=== PATIENT | female | born 1990 | race Caucasian/White ===

== ENCOUNTER 2016-06-02 15:17 | Emergency (ER) ==
[2016-06-02 17:37] LABS: MANUAL DIFF NEEDED? NO
[2016-06-02 18:02] LABS: AGAP 10; ALKALINE PHOSPHATASE 38 U/L (32-104); AMYLASE 69 U/L (20-200); BUN 9 mg/dL (8-22); CALCIUM 8.9 mg/dL (8.8-10.2); CHLORIDE 102 mmol/L (98-107); COSMO 268; GOT 15 U/L (10-30); GPT 7 U/L (10-36); LIPASE 32 U/L (13-60); POTASSIUM 3.8 mmol/L (3.5-5.1); SODIUM 135 mmol/L (136-145); TCO2 24 mmol/L (25-35); TOTAL PROTEIN 6.4 g/dL (6.3-8.3)
[2016-06-02 18:03] LABS: BASO% 0.6 % (0.0-0.8); EOS# 0.14 X1000 (0.0-0.7); EOS% 1.6 % (0.0-10.0); HEMATOCRIT 36.7 % (37.0-47.0); HEMOGLOBIN 12.8 g/dL (12.0-16.0); IMM GRAN# 0.01 X1000 (0.0-0.04); IMM GRAN% 0.1 % (0.0-0.5); LYMPH# 3.28 X1000 (1.2-3.4); LYMPH% 38.3 % (20.5-51.1); MCH 31.7 PG (27-31); MCHC 34.9 g/dL (33-37); MCV 90.8 FL (81-99); MONO# 0.59 X1000 (0.11-0.59); MONO% 6.9 % (1.7-9.3); MPV 10.2 FL (7.4-10.4); NEUT% 52.5 % (42.2-75.2); PLT 263 X1000 (130-400); RBC 4.04 XMIL (4.2-5.4)
[2016-06-02 18:08] LABS: URINE CULTURE PL NEEDED? NO; URINE SOURCE CLEAN CATCH
--- NOTE | 2016-06-02 18:36 | PROVIDER DOCUMENTATION ---
HPI-Abdominal Pain/GI Problem - General Source: patient - History of Present Illness-ABD Nature of Presenting Problems: 26 y/o WF presents to the ED with RUQ pain for 9 days was nausea and vomiting. Pt was seen in in [facility] with possible gallbladder problems. 5 days ago she had an ultrasound which was negative. Pain is intermittent and sharp after eating. After vomiting the pain goes away. Abdominal Pain Onset Location: reports: RUQ Pain Radiation: reports: no radiation Quality of Pain: reports: sharp Severity in ED: reports: severe Onset/Duration: reports: other (9 days) Timing: reports: intermittent Activities at Onset: reports: eating Exposure to sick contacts?: No Modifying Factors: improves with: nothing Associated Symptoms: reports: diarrhea, nausea, vomiting. denies: fever/chills , muscle aches, sinus congestion/drainage Last BM: this morning Dark Stools Present?: reports: none noticed Rectal Bleeding: reports: none Rectal Pain: reports: none # of Vomiting Episodes: 6 (last 6 hours) <Marcelo Britt - Last Filed: 06/02/16 22:09> <Tuan Collado - Last Filed: 06/02/16 22:14> - General Chief Complaint: Abdominal Pain Stated Complaint: ABD PAIN Time Seen by Provider: 06/02/16 18:16 Allergies/Adverse Reactions: Patient Allergies Allergy/AdvReac Type Severity Reaction Status Date / Time No Known Allergies Allergy Verified 06/02/16 19:31 Home Medications: Home Medication List Medication Instructions Recorded Confirmed Last Taken Type Acetaminophen with Codeine 1 each PO Q6H PRN PRN #20 tablet 06/02/16 Unknown Rx [Tylenol with Codeine #3 Tablet] Promethazine [Phenergan] 1 - 2 tab PO Q6H PRN PRN #18 tablet 06/02/16 Unknown Rx Thyroid,Pork [[place] Thyroid] 150 mg DAILY 06/02/16 06/02/16 06/02/16 History Zolpidem [Ambien] 10 mg HS 06/02/16 06/02/16 06/01/16 History Review of Systems - Adult - REVIEW OF SYSTEMS - ADULT Constitutional: denies: chills, fever Eyes: reports: no symptoms reported Ears, Nose, Mouth & Throat: reports: no symptoms reported Cardiovascular: denies: chest pain, edema, palpitations Respiratory: reports: no symptoms reported Gastrointestinal: reports: abdominal pain, diarrhea, nausea, vomiting. denies: constipation Genitourinary: denies: dysuria, discharge, frequency, flank pain, incontinence, urgency Musculoskeletal: reports: no symptoms reported Integumentary: reports: no symptoms reported Neurological: reports: no symptoms reported Psychiatric: reports: no symptoms reported Endocrine: reports: no symptoms reported Hematologic/Lymphatic: reports: no symptoms reported Allergic/Immunologic: reports: no symptoms reported All Other Systems: Reviewed and Negative <Marcelo Britt - Last Filed: 06/02/16 22:09> Past History - Adult - PAST MEDICAL HISTORY-ADULT Review of Records: reports: Old Records Reviewed, Nursing Assessment Review, Medications Reviewed - SOCIAL HISTORY Smoking: non-smoker Substance Use: none/never Living Situation: family <Marcelo Britt - Last Filed: 06/02/16 22:09> Physical Exam-General - PHYSICAL EXAM-ADULT Initial Vital Signs Reviewed: Yes - CONSTITUTIONAL General Appearance: appears well, alert, no apparent distress - EYES Eyes: PERRL/EOMI, pink conjunctivae - HEAD, EARS, NOSE, MOUTH & THROAT HENMT: moist mucous membranes, normal ENT inspection, TMs normal, pharynx normal - NECK Neck: non-tender, full range of motion, supple, normal inspection - RESPIRATORY Respiratory: lungs clear, normal breath sounds, no pleuratic chest pain, no respiratory distress, no accessory muscle use - CARDIOVASCULAR Cardiovascular: normal peripheral pulses, regular rate, rhythm - GASTROINTESTINAL (ABDOMEN) Abdominal Exam: normal bowel sounds (quiet), soft, guarding, tenderness (RUQ) - MUSCULOSKELETAL Back Exam: normal inspection, no CVA tenderness, no vertebral tenderness Extremity: normal range of motion, non-tender, normal gait, normal inspection - SKIN Integumentary: normal color, normal turgor, warm/dry - NEUROLOGIC Neurologic: grossly normal, no motor/sensory deficits - PSYCHIATRIC Psych/Mental Status: normal mood/affect, normal thought content, normal thought process, oriented x 3 <Marcelo Britt - Last Filed: 06/02/16 22:09> Progress - PLAN OF CARE/RESULTS Progress/Plan/Lab Results: Orders Category Date Time Status NPO Diet 06/02/16 15:25 Active US GB < RUQ (LIMITED) [US] Stat Exams 06/02/16 18:17 Taken AMYLASE [CHEM] Stat Lab 06/02/16 17:33 Completed CBC WITH ELECTRONIC DIFF [HEME] Stat Lab 06/02/16 17:33 Completed COMPREHENSIVE METABOLIC PANEL [CHEM] Stat Lab 06/02/16 17:33 Completed LIPASE [CHEM] Stat Lab 06/02/16 17:33 Completed TEST-URINE [PREG] Stat Lab 06/02/16 17:[address] W/POSS RFLX CULT [URINALYSIS] Stat Lab 06/02/16 17:45 Completed 0.9% Sodium Chloride Inj [Ns] 1,000 ml Med 06/02/16 19:02 Discontinued IV 999 mls/hr Promethazine [Phenergan] Med 06/02/16 19:02 Discontinued 12.5 mg IV NOW ONE Sodium Chloride 0.9% Med 06/02/16 19:02 Discontinued 10 ml INJ NOW ONE Vital Signs Temp Pulse Pulse Pulse Pulse Resp BP 06/02/16 17:55 58 L 75 60 06/02/16 15:20 98.2 F 88 18 135/85 BP BP BP Pulse Ox 06/02/16 17:55 122/86 116/82 114/75 06/02/16 15:20 100 No Known Allergies Allergy (Verified 06/02/16 19:31) Thyroid,Pork [[place] Thyroid] 150 mg DAILY 06/02/16 Zolpidem [Ambien] 10 mg HS 06/02/16 Dietary Diet NPO Start TueJun 02 1525 Laboratory 06/02/16 06/02/16 06/02/16 17:45 17:45 17:33 WBC 8.56 RBC 4.04 L Hgb 12.8 Hct 36.7 L MCV 90.8 MCH 31.7 H MCHC 34.9 RDW Std Deviation 11.7 Plt Count 263 MPV 10.2 Immature Gran % (Auto) 0.1 Neut % (Auto) 52.5 Lymph % (Auto) 38.3 [place] % (Auto) 6.9 Eos % (Auto) 1.6 Baso % (Auto) 0.6 Immature Gran # (Auto) 0.01 Neut # (Auto) 4.49 Lymph # (Auto) 3.28 [place] # (Auto) 0.59 Eos # (Auto) 0.14 Baso # (Auto) 0.05 Sodium Potassium Chloride Carbon Dioxide Anion Gap BUN Creatinine Estimated GFR/1.73 m2 BUN/Creatinine Ratio Glucose Calculated Osmolality Calcium Total Bilirubin AST ALT Alkaline Phosphatase Total Protein Albumin Globulin Albumin/Globulin Ratio Amylase Lipase Urine Source CLEAN CATCH Urine Color YELLOW Urine Clarity CLEAR Urine pH 6.5 Ur Specific [place] 1.015 Urine Protein NEGATIVE Urine Ketones TRACE Urine Blood 3+ A Urine Nitrite NEGATIVE Urine Bilirubin NEGATIVE Urine Urobilinogen NORMAL Urine Microscopic RBC <10 Urine WBC NEGATIVE Ur Epithelial Cells <10 Urine Glucose NEGATIVE Urine Test NEGATIVE 06/02/16 17:33 WBC RBC Hgb Hct MCV MCH MCHC RDW Std Deviation Plt Count MPV Immature Gran % (Auto) Neut % (Auto) Lymph % (Auto) [place] % (Auto) Eos % (Auto) Baso % (Auto) Immature Gran # (Auto) Neut # (Auto) Lymph # (Auto) [place] # (Auto) Eos # (Auto) Baso # (Auto) Sodium 135 L Potassium 3.8 Chloride 102 Carbon Dioxide 24 L Anion Gap 10 BUN 9 Creatinine 0.9 Estimated GFR/1.73 m2 > 60 BUN/Creatinine Ratio 10 Glucose 83 Calculated Osmolality 268 Calcium 8.9 Total Bilirubin 0.20 AST 15 ALT 7 L Alkaline Phosphatase 38 Total Protein 6.4 Albumin 4.0 Globulin 2.0 Albumin/Globulin Ratio 2.0 Amylase 69 Lipase 32 Urine Source Urine Color Urine Clarity Urine pH Ur Specific [place] Urine Protein Urine Ketones Urine Blood Urine Nitrite Urine Bilirubin Urine Urobilinogen Urine Microscopic RBC Urine WBC Ur Epithelial Cells Urine Glucose Urine Test - ULTRASOUND (By Radiology) 1 US Study: Gallbladder Impression: Normal US Results: Negative <Marcelo Britt - Last Filed: 06/02/16 22:09> Departure <Marcelo Britt - Last Filed: 06/02/16 22:09> - Departure Time of Disposition Order: 22:11 Certified Medical Emergency: Emergent <Tuan Collado - Last Filed: 06/02/16 22:14> - Departure DIAGNOSIS: Right upper quadrant abdominal pain Vomiting Qualifiers: Vomiting type: unspecified Vomiting Intractability: non-intractable Nausea presence: with nausea Qualified Code(s): R11.2 - Nausea with vomiting, unspecified Disposition: HOME 01 Condition: Stable Additional Instructions: ED Follow Up Instructions: You have been treated by a care provider in the Emergency Department. These instructions are being provided to you so you can have an understanding of how to care for yourself upon discharge. Upon discharge from the Emergency Department, you are responsible for making arrangements for follow-up care by a physician of your choice. Take all prescribed medications as directed. Return to the Emergency Department immediately for any new or worsening symptoms. You may call the Physician Referral phone number at [phone] to obtain a list of Physicians who are taking new patients. Prescriptions: Acetaminophen with Codeine [Tylenol with Codeine #3 Tablet] 1 each PO Q6H PRN PRN #20 tablet PRN Reason: Pain Promethazine [Phenergan] 1 - 2 tab PO Q6H PRN PRN #18 tablet PRN Reason: Vomiting Referrals: Tomas Kumari [Primary Care Provider] - Attestation - Scribe Verification/Attestation Scribe:: Marcelo Britt Acting as Scribe for:: Tuan Collado Scribe documention review:: This chart was documented by a scribe and accurately reflects the service the provider performed and the decisions made by the provider. <Marcelo Britt - Last Filed: 06/02/16 22:09> Physician Attestation
[2016-06-02 18:46] LABS: BILIRUBIN URINE NEGATIVE (NEGATIVE); BLOOD URINE 3+ (NEGATIVE); CLARITY CLEAR (CLEAR); COLOR YELLOW; GLUCOSE URINE NEGATIVE (NEGATIVE); LEUKOCYTES URINE NEGATIVE (NEGATIVE); NITRITE URINE NEGATIVE (NEGATIVE); PH URINE 6.5; PROTEIN URINE NEGATIVE (NEGATIVE); SP GRAVITY URINE 1.015; UROBILINOGEN URINE NORMAL
[2016-06-02 18:47] LABS: URINE EPITHELIAL CELLS <10 /HPF (<10); URINE RBC <10 /HPF (<10)
[2016-06-02] MEDS ORDERED: NS 1,000 ML IV ONE (19:02)
[2016-06-02] MEDS ORDERED: PHENERGAN IV ONE (19:02)
[2016-06-02] MEDS ORDERED: SODIUM CHLORIDE 0.9% INJ ONE (19:02)
[2016-06-02] MEDS ORDERED: NORCO-7.5 PO ONE (22:13)
[2016-06-02] MEDS ORDERED: PHENERGAN PO ONE (22:13)
[2016-06-02 22:17] VITALS: BP 95/62
--- NOTE | 2016-06-02 23:47 | Diag Imaging Result Document ---
PROCEDURE NAME: US GB < RUQ (LIMITED) - 06/02/2016 RIGHT UPPER QUADRANT ULTRASOUND: FINDINGS: Normal pancreas. No aneurysmal dilatation to the abdominal aortic. Normal inferior vena cava. No focal or diffuse hepatic abnormality. Slight distention to the right renal pelvis. The right kidney is otherwise normal. No ascites in the right upper quadrant. Normal gallbladder. No stones. The gallbladder wall is not thickened. The common bile duct measures 3 mm. IMPRESSION: Slight distention to the right renal pelvis, otherwise normal right upper quadrant ultrasound. A preliminary report was given at 8:45 p.m.
== END 2016-06-02 22:55 | disposition home or self-care (01) ==
LOC: P.ED 15:17
DX: R10.11 Right upper quadrant pain (principal); R11.2 Nausea with vomiting, unspecified; R19.7 Diarrhea, unspecified; R10.811 Right upper quadrant abdominal tenderness; Z79.899 Other long term (current) drug therapy
CPT/HCPCS: 76705; 80053; 81001; 81025; 82150; 83690; 85025; J2550; J7030